=== PATIENT | male | born 1965 | race Caucasian/White ===

== ENCOUNTER 2017-02-15 08:33 | Emergency (ER) | payer MEDICAID ==
[~2017-02-15] VITALS: Ht 170.2 cm; Wt 59.1 kg
[2017-02-15] MEDS ORDERED: [UNRECOGNIZED DRUG - REMARK] PO (08:43)
[2017-02-15] MEDS ORDERED: PARO10TA89 PO (08:43)
[2017-02-15] MEDS ORDERED: ASPI81 PO (08:43)
[2017-02-15 09:02] VITALS: BP 124/82
[2017-02-15] MEDS ORDERED: DiphenhydrAMINE HCL 25 MG CAPSULE PO ONE (10:15)
[2017-02-15] MEDS ORDERED: HYDROCORTISONE 0.5% 30 GM CREAM TP ONE (10:15)
== END 2017-02-15 11:10 | disposition home or self-care (01) ==
LOC: EMS 08:34
DX: L25.9 Unspecified contact dermatitis, unspecified cause (principal); Z88.2 Allergy status to sulfonamides
CPT/HCPCS: 99283